=== PATIENT | male | born 1965 | race African-American/Black ===

== ENCOUNTER 2019-02-07 12:49 | Emergency (ER) | payer BC, OTHER ==
[~2019-02-07] VITALS: Ht 182.9 cm; Wt 100.0 kg
[2019-02-07] MEDS ORDERED: KETOROLAC 30MG/ML VIAL IV ONE (13:45)
[2019-02-07] MEDS ORDERED: HYDROCODONE/ACETAMINOPHEN 10/325MG TABLET PO ONE (15:30)
[2019-02-07 20:01] VITALS: BP 135/72
== END 2019-02-07 20:01 | disposition home or self-care (01) ==
LOC: ER 12:49 → EDBD 12:49 → ER 20:01
DX: S70.02XA Contusion of left hip, initial encounter (principal); S70.01XA Contusion of right hip, initial encounter; S39.012A Strain of muscle, fascia and tendon of lower back, initial encounter; W18.39XA Other fall on same level, initial encounter; Y93.89 Activity, other specified; Y92.89 Other specified places as the place of occurrence of the external cause; Y99.8 Other external cause status; Z96.649 Presence of unspecified artificial hip joint
CPT/HCPCS: 72100; 72170; 96374; 99283; J1885